=== PATIENT | male | born 1985 | race Caucasian/White ===

== ENCOUNTER 2023-09-14 09:47 | Emergency (ER) | payer SELFPAY ==
[~2023-09-14] VITALS: Ht 175.3 cm; Wt 85.0 kg
[2023-09-14 10:04] VITALS: BP 143/94; PULSE 91; RESP 17; TEMP 98.2; O2SAT 98
[2023-09-14] MEDS: IBUPROFEN 600 MG TAB PO ONE (10:45)
[2023-09-14] MEDS: ACETAMINOPHEN EXTRA STRENGTH 500 MG TAB PO ONE (11:37)
[2023-09-14] MEDS ORDERED: ONDA-188 SL (11:43)
[2023-09-14] MEDS ORDERED: BENZ-300 PO (11:43)
[2023-09-14] MEDS ORDERED: IBUP-2218 PO (11:43)
[2023-09-14 11:45] LABS: FLU A ANTIGEN negative (NEGATIVE); FLU B ANTIGEN NEGATIVE (NEGATIVE)
[2023-09-14 11:51] VITALS: BP 143/94; PULSE 91; RESP 17; TEMP 98.2; O2SAT 98
[2023-09-14] MEDS ORDERED: AMOX500C25 PO (12:15)
== END 2023-09-14 11:47 | disposition home or self-care (01) ==
LOC: MED 09:47
DX: B34.9 Viral infection, unspecified (principal); Z20.822 Contact with and (suspected) exposure to COVID-19; J02.0 Streptococcal pharyngitis; Z79.899 Other long term (current) drug therapy
CPT/HCPCS: 87081; 99283